=== PATIENT | female | born 1990 | race Caucasian/White ===

== ENCOUNTER 2016-06-05 10:05 | Inpatient (IN) | payer OTHER ==
[~2016-06-05] VITALS: Ht 149.9 cm; Wt 68.0 kg
[~2016-06-05 10:05] MED LIST: MULT-36 PO
[2016-06-05] MEDS ORDERED: Morphine PF 1 mg/mL 10 mL Inj ONE (10:06)
[2016-06-05] MEDS ORDERED: fentaNYL-PF 50 mCg/mL 2 mL Inj ONE (10:06)
[2016-06-05] MEDS ORDERED: Sodium Citrate-Citric Acid 15 mL Solution PO SCH (11:30)
[2016-06-05] MEDS ORDERED: Carboprost 250 mCg/mL Inj IM PRN ×2 (11:30→14:20)
[2016-06-05] MEDS ORDERED: CeFAZolin Inj 2 GM in IV Premix 1 EACH IV SCH (11:30)
[2016-06-05] MEDS ORDERED: Hemorrhage Kit, Post Partum XX ONE ×2 (11:30→14:20)
[2016-06-05] MEDS ORDERED: Methylergonovine 0.2 mg/mL Inj IM PRN ×2 (11:30→14:20)
[2016-06-05] MEDS ORDERED: Lactated Ringer's 1,000 ML IV SCH (11:30)
[2016-06-05] MEDS ORDERED: Oxytocin 10 Unit/mL Inj IM PRN ×2 (11:30→14:20)
[2016-06-05] MEDS ORDERED: Lactated Ringer's 1,000 ML IV PRN (11:37)
--- NOTE | 2016-06-05 11:37 | PCM.HPANE ---
Patient Data Date of Service: Jun 05, 2016 Surgeon Admitting Provider:Odalys Mota MD Attending Provider:Odalys Mota MD Primary Care Physician:Lelo Mcdonnell MD Other Provider:Laquita Gonzalez Anesthesia Reason for Visit Repeat C/S Repeat C/S Ht/WT & BMI Weight (Kilograms): 68 Body Mass Index 30.3 Allergies Coded Allergies: No Known Allergies (Verified Allergy, Unknown, 01/16/16) Past Anesthesia History Anesthesia History: Denies:: Anesthesia Reactions, Malignant Hyperthermia Diabetes History Hx Diabetes?: No MRSA MRSA: No Medications Hypertension Medication: No Home Meds Incl Beta Sheila: No Reported Medications Multivitamin (Daily Multiple Vitamin)1 Each Tablet1 Each PO DAILY 09/16/14 History History of ENT Problems?: No Hx of Heart Problems?: No Cardiovascular History: Denies:: Congestive Heart Failure Hypertension Hx of Respiratory Problem?: No Respiratory History: Denies:: Tuberculosis Use of C-PAP Machine Hx Neurologic Problems?: No Hx of GI Problems?: No Hx of Problems?: No Genitourinary History: Denies:: Kidney Stones Female Hx: Denies:: Currently (S/P C/S X2 W/ HX OF UTERINE DEHISCENCE (LAST C/S 02/2014)) Endometriosis Pelvic Inflammatory Problems with Breasts? Skin History: Denies:: History Skin Disorders? Pressure Ulcers Hx Musculoskeletal Problems?: No Hx of Psycho/Social Problems?: No Hx Surgeries?: Yes ( X2,WISDOM TEETH EXTRACTIONS) Hx Any Other Health Problems?: Yes Other History: Denies:: Cancer Endocrine Disease Hospitalization Thyroid Disease History Blood Transfusions: Denies:: Blood Transfusions Hx Diabetes: No Hx Alcohol Use: Yes (RARE)Hx Substance Use: No Smoking Status: Never Smoker Have You Smoked inLast 12 mo: No Stop/Bang Treated for Sleep Apnea?: No Do You Have a CPAP Machine?: No SANKET Risk Assessment: Low Risk, <3 Yes Risk Assessment Category Category 1A: Patient has history of documented sleep apnea, and HAS NOT received any narcotic, sedative or anesthesia administration during this stay. Category 1B: Patient has history of documented sleep apnea, and HAS received any narcotic , sedative or anesthesia administration during this stay Category 2: Patient has SUSPECTED Obstructive Sleep Apnea, and HAS received any narcotic , sedative or anesthesia administration during this stay. Category 3: Patient has SUSPECTED Obstructive Sleep Apnea and HAS NOT received narcotic, sedative or anesthesia administration during this stay. Category 4: Outpatient in Procedural Areas with known sleep apnea or who screen positive for High Risk via the STOP/BANG questionnaire. Exam Exam General Appearance: Alert, Oriented X3, Cooperative HEENT/AIRWAY: MP 2, Neck Movement (Full), Mouth Opening (Wide) Lungs: Clear to Auscultation, Normal Air Movement Heart: Regular Rate/Rhythm, Normal S1, Normal S2 Meds/Labs/Diagnostics Labs Test 06/05/16 11:10 Plan Impression Patient chart reviewed, patient interviewed and anesthestic plan with risks, benefits, and alternatives discussed, and informed consent obtained. NPO Status: 09/19/14 ASA Physical Status: ASA2 Mod Systemic Disease Anesthetic Plan: SAB Bene/Risks/Altern/Consents: Yes HP Complete Prior to Induction: Yes Jose Roberto Sherwood MD Jun 05, 2016 11:37
[2016-06-05] MEDS ORDERED: fentaNYL-PF 50 mCg/mL 2 mL Inj IVPUSH PRN (11:40)
[2016-06-05] MEDS ORDERED: EPHEDrine Sulfate 50 mg/mL Inj IVPUSH PRN (11:40)
[2016-06-05] MEDS ORDERED: Ondansetron 2 mg/mL 2 mL Inj IVPUSH PRN (11:40)
[2016-06-05] MEDS ORDERED: MetoCLOpramide 5 mg/mL 2 mL Inj IVPUSH PRN (11:40)
[2016-06-05] MEDS ORDERED: Atropine 0.4 mg/mL Inj IV PRN (11:40)
[2016-06-05] MEDS ORDERED: Dexamethasone 4 mg/mL Inj IVPUSH PRN (11:40)
[2016-06-05 11:45] LABS: Mean Corpuscular Hemoglobin 29.3 pg (27.0-35.0); Mean Corpuscular Volume 88.1 fL (81-100)
[2016-06-05] MEDS ORDERED: Oxytocin 30 Units/500 mL LR Premix IV ONE (11:49)
[2016-06-05] MEDS ORDERED: Vancomycin Inj 1,000 MG in IV Premix 1 EACH IV ONE (11:52)
[2016-06-05] MEDS ORDERED: Nalbuphine 10 mg/mL Inj IV PRN (13:35)
[2016-06-05] MEDS ORDERED: LANOlin HPA 7 Gm Ointment TOPICAL PRN (14:20)
[2016-06-05] MEDS ORDERED: Sodium Chloride LOK Flush 10 mL Syringe IVFLUSH PRN (14:20)
[2016-06-05] MEDS ORDERED: Oxytocin 30 Units/500 mL LR 30 UNITS in IV Premix 1 EACH IV PRN (14:20)
--- NOTE | 2016-06-05 14:32 | PCM.ANEP1 ---
Post Anesthesia Phase 1 PACU Phase 1 Assessment Date of Service: Jun 05, 2016 Vital Signs See OB documentation Anesthetic Administered: Epidural Level of Alertness: Awake, talking WOLFE's with Equal Strength: No Pain: No Nausea or Vomiting: No Oxygen Delivery: Room Air Lungs: Normal Air Movement Dermatome Level: T6 (Xyphoid Process) Jose Roberto Sherwood MD Jun 05, 2016 14:32
--- NOTE | 2016-06-05 14:33 | PCM.ANEP2 ---
Post Anesthesia Evaluation ASA/CMS Post Anesthesia Date of Service: Jun 05, 2016 VS in Patient's Normal Range?: Yes Resp Stable; Airway Patent?: Yes CV Function & Hydration Stable: Yes Mental Status Recovered?: Yes Pain control Satisfactory?: Yes N/V Control Satisfactory?: Yes Jose Roberto Sherwood MD Jun 05, 2016 14:33
[2016-06-05] MEDS ORDERED: Oxytocin 10 Unit/mL Inj ONE (14:41)
[2016-06-05] MEDS ORDERED: EPHEDrine/NS 5 mg/mL 5 mL Syringe ONE (14:41)
[2016-06-05] MEDS ORDERED: Ondansetron 2 mg/mL 2 mL Inj ONE (14:41)
[2016-06-05] MEDS: Lactated Ringer's 1,000 ML IV SCH ×2 (15:30→22:17)
[2016-06-05] MEDS: oxyCODONE-Acetamin 5-325 mg Tablet PO PRN (16:38)
--- NOTE | 2016-06-05 23:32 | OP ---
[address] [address] OPERATIVE REPORT PATIENT: CLAIRE KINGSLEY : 1990 MR#: [id number] ADMIT: 06/05/2016 JOB ID: [id number] CORRECTED REPORT: DATE OF SURGERY: 06/05/2016 PROCEDURE: Repeat low transverse delivery. PREOPERATIVE DIAGNOSIS(ES): 1. Intrauterine , 40 weeks 0 days. 2. History of two prior sections. POSTOPERATIVE DIAGNOSIS(ES): 1. Intrauterine , 40 weeks 0 days. 2. History of two prior sections. 3. Status post repeat section delivery. SURGEON: Stoney Choudhury MD PARCEL CARRIER: Odalys Mota MD ESTIMATED BLOOD LOSS: 400 mL. ESTIMATED FLUIDS: 2 L of lactated Ringer's. URINE OUTPUT: 300 mL. COMPLICATIONS: None. PROCEDURE: The patient was brought to the operating room, where she underwent spinal anesthesia without difficulty. The patient was placed in the dorsal supine position with leftward tilt. She was prepped and draped in the usual surgical fashion. Patient received preoperative antibiotics. Time-out was performed verifying correct patient, correct procedure. Pfannenstiel skin incision was made over the prior skin scar and carried down to the underlying layer of rectus muscle fascia using Bovie. The rectus muscle fascia was incised in the midline with a Bovie, and the incision was then laterally extended using William scissors. The lower aspect of the incision was grasped with two Gary clamps, and the rectus muscle fascia was from the underlying rectus muscle using William scissors. In a similar fashion, the upper aspect of the incision was grasped with two Gary clamps, and the rectus muscle fascia was from the underlying rectus muscle using William scissors and moist laparotomy sponge. The rectus muscles were in the midline. The peritoneum was identified, tented up with two Adrianna clamps, entered sharply with the Metzenbaum scissors. The patient did not have any significant intra-abdominal adhesions. The bladder blade was introduced. Using scalpel, lower segment uterine transverse incision was made and extended laterally. The infant's head was identified. The bladder blade was removed, and female was atraumatically delivered. Apgars scores were 9 at 1 minute and 10 at 5 minutes. Delayed cord clamping was done, and the was handed off to the waiting respiratory therapist. The cord blood was sent. The placenta was removed by applying fundal pressure over the fundus of the uterus. The uterus was exteriorized and cleared from all the blood clots and debris using dry laparotomy sponge. The uterine incision was repaired with two layers of 0 Monocryl. The uterus was repositioned back into the abdomen. There was no need for irrigation because there was no blood. The peritoneum was reapproximated with 2-0 Vicryl. The rectus muscle fascia were reapproximated in the middle with 2-0 Vicryl. The rectus muscle fascia was closed with 0-Vicryl. Then 3-0 Vicryl sutures were applied to reapproximate Vinay fascia and subcuticular fat. The skin was closed with 4-0 Monocryl. Hemostatic dressing was applied. The patient tolerated the procedure well and was transferred to the recovery room in stable condition. ADDITIONAL INFORMATION: Assistance of Dr. Odalys Mota was needed for appropriate retraction, exposure, and assistance with delivery of the . Addenda added by ELISSA 09/19/16 at 8:20am
[2016-06-06] MEDS: oxyCODONE-Acetamin 5-325 mg Tablet PO PRN ×3 (03:49→13:58)
[2016-06-06] MEDS: Lactated Ringer's 1,000 ML IV SCH ×3 (06:17→22:17)
--- NOTE | 2016-06-06 07:17 | PCM.PNOBPP ---
Subjective Date of Service Jun 06, 2016 Post : Repeat Ceserean Delivery Subjective 26 year old female status post her third . Pt underwent operation without complication and tolerated procedure well. Pt slept through most of the night without complication. She is able to get out of bed to use the bathroom. reports some soreness at her incision site. Reports Flatus , no BM. is making good urine. Denies CP, RAMIREZ, Visual disturbances, N/V, fevers or chills. Pain Management: PO pain meds Gastrointestinal: Passing Flatus Postop Activity: Ambulating in Room Only Rubella: Immune Blood Type: A RH Type: Positive Labs Laboratory Tests 06/05/16 11:10: White Blood Count 10.0, Red Blood Count 4.44, Hemoglobin 13.0, Hematocrit 39.1, Mean Corpuscular Volume 88.1, Mean Corpuscular Hemoglobin 29.3, Mean Corpuscular Hemoglobin Concent 33.2, Red Cell Distribution Width 13.0, Platelet Count 172 Exam Exam Abdomen: Abdomen soft, Abdomen appropriately tender : Voiding without difficulty Extremities: No tenderness/swelling, No edema Lungs: Clear to Auscultation Heart: Exam Unremarkable General: Alert, Oriented X3, Cooperative, No Acute Distress OB Post Assessment/Plan Assessment S/p repeat x 3, no complications. Problems: (1) Status post repeat low transverse section Onset Date: 03/12/2014 Status: Acute ICD Code: Z98.89 Pain Evaluation: Adequate Pain Control Plan: At 2 week follow up Pt wishes to discuss future contraception plans. This is her third child she and her partner do not anticipate having anymore children. She and her partner both do not want to alter their bodies with surgery and would like to discuss contraception possibilities. She doesn't like IUD's or the Depo shot and has concerns about control pills. She will discharge tomorrow baring no complications or adverse events. Attending Statement I saw patient and agree with above plan ALIYAH CONNOLLY DO Jun 06, 2016 07:17 Martha Hdez MD Jul 01, 2016 12:29
[2016-06-06 07:23] LABS: Mean Corpuscular Hemoglobin 29.1 pg (27.0-35.0); Mean Corpuscular Volume 89.9 fL (81-100)
[2016-06-06] MEDS: Ascorbic Acid 500 mg Tablet PO SCH (09:41)
--- NOTE | 2016-06-07 07:44 | PCM.PNOBPP ---
Subjective Date of Service Jun 07, 2016 Post : Repeat Ceserean Delivery Subjective 26 sp delivery with no complications, mother doing well. Lochia: Normal Pain Management: PO pain meds Gastrointestinal: Passing Flatus Postop Activity: Ambulating in Room Only Group B Strep Results: Negative Rubella: Immune Blood Type: A RH Type: Positive Labs Laboratory Tests 06/06/16 06:59: White Blood Count 11.2, Red Blood Count 3.57, Hemoglobin 10.4, Hematocrit 32.1, Mean Corpuscular Volume 89.9, Mean Corpuscular Hemoglobin 29.1, Mean Corpuscular Hemoglobin Concent 32.4, Red Cell Distribution Width 13.0, Platelet Count 134 Exam Vital Signs Vital Signs: VS reviewed, stable Exam Abdomen: Abdomen soft, Abdomen appropriately tender : Voiding without difficulty Extremities: No tenderness/swelling Lungs: Clear to Auscultation Heart: Exam Unremarkable, Regular Rate/Rhythm General: Alert, Oriented X3, Cooperative, No Acute Distress OB Post Assessment/Plan Assessment 26 , sp hospital day 3. Pt will be discharged to home today. At 2 week follow up Pt wishes to discuss future contraception plans. This is her third child she and her partner do not anticipate having anymore children. She and her partner both do not want to alter their bodies with surgery and would like to discuss contraception possibilities. She doesn't like IUD's or the Depo shot and has concerns about control pills. She will discharge tomorrow baring no complications or adverse events. Problems: (1) Status post repeat low transverse section Plan: 26 G Onset Date: 03/12/2014 Status: Acute ICD Code: Z98.89 (2) delivery delivered Plan: Continue to monitor, wound shows no sign of infection Status: Acute ICD Code: O82 Pain Evaluation: Adequate Pain Control Plan: At 2 week follow up Pt wishes to discuss future contraception plans. This is her third child she and her partner do not anticipate having anymore children. She and her partner both do not want to alter their bodies with surgery and would like to discuss contraception possibilities. She doesn't like IUD's or the Depo shot and has concerns about control pills. She will discharge tomorrow baring no complications or adverse events. ALIYAH CONNOLLY DO Jun 07, 2016 07:44
--- NOTE | 2016-06-07 08:28 | PCM.DC.OB ---
Obstetrical Discharge Summary Date of Service Jun 07, 2016 Date of hospital admission Jun 05, 2016 at 10:05 Date of Discharge: Jun 07, 2016 Providers Admitting Physician: Odalys Mota MD Primary Care Physician: Lelo Mcdonnell MD Attending Physician: Odalys Mota MD Problems: (1) Status post repeat low transverse section Onset Date: 03/12/2014 Status: Acute ICD Code: Z98.89 (2) delivery delivered Status: Acute ICD Code: O82 Brief History and Physical: underwent her third for full term gestation. Hospital Course: Pt sp , 48 hour monitoring with no adverse events. Pt complained of some pain, controlled with medication. No BM post op though is passing flatus at time of discharge. Some concern for possible pre-eclampsia, Pt did have a few elevated BP readings , SBP remained in 120's though DBP had some reading of mid 90's. At time of discharge BP 124/82 and stable. CBC showed platelet count of 163 trending up from 134 and 174 at time of admit, also showing improvement in post anemia. CMP showed normal AST/ALT, normal BUN/Cr and Est GFR. LDH elevated at 260. Urine random Creatinine and total protein also normal with no signs of significant proteinuria. Pt will be encouraged to follow up for a nurses visit in 4-7 days for a BP check and keep her regular 2 week post op appointment. Pt given informational packet regarding pre-eclampsia. ([Ascorbic Acid]) 500 MG TABLET 500 MG PO DAILYWM Prescribed by: ALIYAH CONNOLLY DO Docusate Sodium (Colace) 100 Mg Capsule 100 MG PO BID PRN PRN For Constipation Prescribed by: ALIYAH CONNOLLY DO Ferrous Sulfate (Feosol) 325 Mg Tablet 325 MG PO BIDWM Prescribed by: ALIYAH CONNOLLY DO Hydrocodone-Acetaminophen 5-325 mg (Hydrocodone-Acetaminophen 5-325 mg) 1 Each Tablet 1 TABLET PO Q4H PRN PRN For Pain Prescribed by: ALIYAH CONNOLLY DO Ibuprofen (Ibuprofen) 800 Mg Tablet 800 MG PO Q6H PRN PRN For Pain Prescribed by: ALIYAH CONNOLLY DO Multivitamin (Daily Multiple Vitamin) 1 Each Tablet 1 EACH PO DAILY (Reported) Discharge Medications: Colace, Vit C, Ferrous Sulfate, Ibuprofen, [place] Disposition Discharge to Home in stable condition Follow-up plan Follow up in women's clinic in 2 weeks Discharge Diet: No restrictions Discharge Activity-General: Pelvic Rest for 6 weeks, Try not to overdue, Be up and about, Balance rest and activity, Ice incision 3-5 time/day for 20min, Activity as pain allows, Activity as energy allows, No lifting >15 pounds for 2 weeks Patient instructions Please take your iron and vitamin c together. Do not take more pain medication than is necessary - less is better [place] pills have tylenol (acetaminophen) in them at 325mg per pill. Do not take Tylenol in addition to your pain medication, you should take one or the other. Both iron and percocet can give you constipation so you have also been given a prescription for docusate to keep you regular. Be sure to follow up in two weeks and then again in 6 weeks at [facility]. Pelvic rest for 6 weeks (nothing in the vagina including intercourse, tampons) If you have a fever greater than 100.4 please call [facility]. If you have alot of bleeding suddenly, especially if you have symptoms of dizziness & weakness with it, get emergency help. If you start experiencing extreme depression, especially if you feel that you are a danger to yourself or your family, seek emergency help. Please take your docusate, if you still do not have a bowel movement in the next few days please follow up in the women's clinic or with your PCP. Please follow up for a nurse visit at the women's health clinic in the next 4-7 days for a blood pressure check. You have been through a lot -- Be sure to take care of yourself. ALIYAH CONNOLLY DO Jun 07, 2016 08:28
--- NOTE | 2016-06-07 08:35 | PCM.DIOB ---
Obstetrical Disch Instruction Dates of Hospitalization Date of Hospital Admission Jun 05, 2016 at 10:05 Providers Admitting Physician: Odalys Mota MD Primary Care Physician: Lelo Mcdonnell MD Attending Physician: Odalys Mota MD Discharge Diagnosis Problems: (1) Status post repeat low transverse section Onset Date: 03/12/2014 Status: Acute ICD Code: Z98.89 (2) delivery delivered Status: Acute ICD Code: O82 Diet Discharge Diet: No restrictions Activity Discharge Activity-General: Pelvic Rest for 6 weeks, Try not to overdue, Be up and about, Balance rest and activity, Activity as pain allows, Activity as energy allows, No lifting >15 pounds for 2 weeks Dressing and Incisional Care Dressing Care: Keep dressing clean, dry & intact, Allow Steri Stripes to fall off Hygiene: May shower, NO bathtub, hot tub or whirlpool Additional Instructions Discharge Instructions Please take your iron and vitamin c together. Do not take more pain medication than is necessary - less is better [place] pills have tylenol (acetaminophen) in them at 325mg per pill. Do not take Tylenol in addition to your pain medication, you should take one or the other. Both iron and percocet can give you constipation so you have also been given a prescription for docusate to keep you regular. Be sure to follow up in two weeks and [facility] Pelvic rest for 6 weeks (nothing in the vagina including intercourse, tampons) If you have a fever greater than 100.4 please call Women's [facility]. If you have alot of bleeding suddenly, especially if you have symptoms of dizziness & weakness with it, get emergency help. If you start experiencing extreme depression, especially if you feel that you are a danger to yourself or your family, seek emergency help. Please do take your docusate, if you still do not have a bowel movement in the next few days please follow up in the women's clinic or with your PCP. Please follow up at the women's clinic in 4-7 days for a nurses visit to check your blood pressure. You have been through a lot -- Be sure to take care of yourself. Follow Up Plan Follow Up Plan Follow up in women's clinic in 2 weeks Follow-up appointment: Weeks (2) Call your provider for: Fever or Chills, Shortness of breath, Heavy vaginal bleeding, Heavy bleeding, Epigastric pain, Excessive constipation, Vaginal discomfort, Red painful breasts Additional Information Included is an educational packet regarding pre-eclampsia ALIYAH CONNOLLY DO Jun 07, 2016 08:35
[2016-06-07] MEDS ORDERED: DOCU-41 PO (08:39)
[2016-06-07] MEDS ORDERED: IBUP800T28 PO (08:39)
[2016-06-07] MEDS ORDERED: Ascorbic Acid PO (08:39)
[2016-06-07] MEDS ORDERED: FERR-74 PO (08:39)
[2016-06-07] MEDS ORDERED: HYDR-4003 PO (08:39)
[2016-06-07] MEDS ORDERED: HYDROcodone-APAP 5-325 mg Tablet PO PRN (09:50)
[2016-06-07] MEDS: Ascorbic Acid 500 mg Tablet PO SCH (09:53)
[2016-06-07 10:24] LABS: BASOPHILS % (AUTO) 0.1 % (0-3); EOSINOPHILS % (AUTO) 2.3 % (0-5); MONOCYTES % (AUTO) 4.1 % (4-12); Mean Corpuscular Hemoglobin 29.3 pg (27.0-35.0); Mean Corpuscular Volume 90.7 fL (81-100); NEUTROPHILS % (AUTO) 74.1 % (40-74); Platelet Count 163 bil/L (150-400)
[2016-06-07 16:20] VITALS: BP 127/86; PULSE 69; RESP 16
--- NOTE | 2016-07-17 09:43 | HP ---
[address] [address] HISTORY AND PHYSICAL PATIENT: CLAIRE KINGSLEY : 1990 MR#: [id number] ADMIT: 06/05/2016 JOB ID: [id number] HISTORY OF PRESENT ILLNESS: The patient is a 26-year-old 3, para 2 at 40 weeks, estimated due date is today, June 05, 2016 comes for repeat delivery. The patient had a history of two prior sections. The patient is asymptomatic. care was significant for borderline high blood pressure. Today the patient is stable. labs were reviewed. She is blood group and type A positive, rubella immune. Group B strep negative. PHYSICAL EXAMINATION: Vital signs: Blood pressure 128/68, respiratory rate 18, temperature 36.7, pulse 86. General examination: The patient is alert, oriented x3, cooperative, no acute distress. Lungs: Clear bilaterally. No adventitious sounds. Cardiovascular system: Regular rate and rhythm. Abdomen is soft, gravid, nondistended. Extremities: No tenderness, no pitting edema. Pelvic examination denied. SOCIAL HISTORY: The patient denies smoking, alcohol, illicit recreational drug use. FAMILY HISTORY: Noncontributory. LABORATORY FINDINGS: WBC count 10. Hemoglobin 13.0, hematocrit 39.1, platelet count 172. ASSESSMENT AND PLAN: The patient is a 26-year-old 3, para 2, at 40 weeks going for repeat delivery. Physical examination is unremarkable. The risks and benefits of were explained to the patient, the risks involving but not limited to, bleeding, infection, minor damage to the like skin laceration, possible damage to adjacent organs and structures, possible hysterectomy in rare circumstances. The patient verbalized understanding of all the risks involved and informed consent was obtained. She is getting IV hydration with lactated Ringer at 125 mL/h. Bicitra 30 cc p.o. was given. The patient is getting preoperative antibiotics.
== END 2016-06-07 20:47 | disposition home or self-care (01) | DRG 766 ==
LOC: FBC 10:05 → EDSTATUS 11:45
PROVIDERS: ADMIT Obstetrics & Gynecology; ATTEND Obstetrics & Gynecology
PROC: 10D00Z1 Extraction of Products of Conception, Low, Open Approach (ICD-10-PCS; principal; 2016-06-05 11:45)
DX: O34.211 Maternal care for low transverse scar from previous cesarean delivery (principal); Z3A.40 40 weeks gestation of pregnancy; Z37.0 Single live birth